=== PATIENT | male | born 1975 | race Two or more races ===

== ENCOUNTER 2018-09-02 14:31 | Emergency (ER) | payer SELFPAY ==
[~2018-09-02] VITALS: Ht 167.6 cm; Wt 74.8 kg
[2018-09-02 14:38] VITALS: BP 149/84
--- NOTE | 2018-09-02 15:41 | NUR ---
Labs being drawn then pt to 21 from greg
[2018-09-02 15:54] LABS: BASOPHILS # (AUTO) 0.02 x10^3/uL (0-0.1); BASOPHILS % (AUTO) 0 % (0-1); EOSINOPHILS % (AUTO) 1 % (1-7); LYMPHOCYTES # (AUTO) 1.42 x10^3/uL (1-3.4); LYMPHOCYTES % (AUTO) 18 % (22-44); MD NO; MEAN CORPUSCULAR HEMOGLOBIN 31.5 pg (27.5-34.5); MEAN CORPUSCULAR VOLUME 92.6 fL (81-97); MEAN PLATELET VOLUME 8.7 fL (7.4-10.4); MONOCYTES # (AUTO) 0.48 x10^3/uL (0.2-0.8); MONOCYTES % (AUTO) 6 % (2-9); NEUTROPHILS # (AUTO) 5.82 x10^3/uL (1.8-6.8); NEUTROPHILS % (AUTO) 74 % (42-75); PLATELET COUNT 213 x10^3/uL (130-400); RED BLOOD COUNT 5.53 x10^6/uL (4.38-5.82); RED CELL DISTRIBUTION WIDTH 13.3 % (9.4-14.8)
[2018-09-02 16:03] LABS: ALBUMIN 3.7 g/dL (3.4-5.0); ANION GAP 8 mmol/L (5-15); CALCIUM 8.2 mg/dL (8.5-10.1); CHLORIDE 107 mmol/L (98-107); CREATININE 0.86 mg/dL (0.7-1.3)
== END 2018-09-02 16:28 | disposition home or self-care (01) ==
LOC: ED 16:21
DX: L04.1 Acute lymphadenitis of trunk (principal)
CPT/HCPCS: 36415; 76870; 80048; 82040; 85025; 99284

== ENCOUNTER 2018-09-04 05:40 | Emergency (ER) | payer SELFPAY ==
[~2018-09-04] VITALS: Ht 167.6 cm; Wt 75.5 kg
[2018-09-04 05:43] VITALS: BP 156/76
--- NOTE | 2018-09-04 06:03 | NUR ---
Pt presents to ed c/o sores on testicles w/ increasing pain. States seen pcp for issue and is on abx. Denies any fevers at home. Unsure if symptoms are worsening. Md at bedside for assessment.
[2018-09-04] MEDS ORDERED: LIDOCAINE-MPF 1%, 5ML ONE (06:12)
--- NOTE | 2018-09-04 06:15 | NUR ---
Lidocaine given to md to admin for I&D.
--- NOTE | 2018-09-04 06:18 | NUR ---
at bedside for I&D.
[2018-09-04] MEDS ORDERED: BACITRACIN ZINC OINT 500U/GM, 0.9 GM ONE (06:31)
--- NOTE | 2018-09-04 07:06 | NUR ---
Recieved report from YE Crawley. All questions answered. Assuming care of pt.
--- NOTE | 2018-09-04 07:19 | NUR ---
Patient given discharge instructions in [place] written and with interpretor on [employer] spoken, and they have confirmed that they understand the instructions. Patient ambulatory with steady gait and balance. NADN. No obvious defecits observed. Pt left with all personal belongings, d/c paperwork, and clean gauze.
== END 2018-09-04 07:22 | disposition home or self-care (01) ==
LOC: ED 06:44
DX: L02.214 Cutaneous abscess of groin (principal)
CPT/HCPCS: 10060; 99283

== ENCOUNTER 2018-09-06 12:49 | Emergency (ER) | payer SELFPAY ==
[~2018-09-06] VITALS: Ht 152.4 cm; Wt 74.0 kg
[2018-09-06 12:54] VITALS: BP 150/92
== END 2018-09-06 13:40 | disposition home or self-care (01) ==
LOC: ED 13:20
DX: Z48.01 Encounter for change or removal of surgical wound dressing (principal)
CPT/HCPCS: 99283

== ENCOUNTER 2018-09-08 11:36 | Emergency (ER) | payer SELFPAY ==
[~2018-09-08] VITALS: Ht 167.6 cm; Wt 74.3 kg
[2018-09-08 11:38] VITALS: BP 163/81
== END 2018-09-08 12:07 | disposition home or self-care (01) ==
LOC: ED 11:55
DX: Z48.01 Encounter for change or removal of surgical wound dressing (principal)
CPT/HCPCS: 99281